=== PATIENT | female | born 1970 | race Caucasian/White ===

== ENCOUNTER 2016-11-10 20:41 | Inpatient (IN) | payer OTHER ==
[~2016-11-10] VITALS: Ht 162.6 cm; Wt 113.4 kg
[2016-11-11] MEDS ORDERED: Alum-Mag Hydrox-Simeth 30 mL Suspension PO PRN (01:55)
[2016-11-11] MEDS ORDERED: Magnesium Hydroxide 10 mL Oral Concentration PO PRN (01:55)
[2016-11-11] MEDS ORDERED: Benzocaine-Menthol Lozenge 2/Pkg PO PRN (01:55)
[2016-11-11] MEDS ORDERED: IPRA4AER IH (04:18)
[2016-11-11] MEDS ORDERED: BENZ200C44 PO (04:19)
[2016-11-11] MEDS ORDERED: ARIP20TA10 PO (04:19)
[2016-11-11] MEDS ORDERED: HYDR25TA4 PO (04:20)
[2016-11-11] MEDS ORDERED: LOSA25TA21 PO (04:21)
[2016-11-11] MEDS ORDERED: LORA-303 PO (04:21)
[2016-11-11] MEDS ORDERED: NABU500T PO (04:22)
[2016-11-11] MEDS ORDERED: SERT100T9 PO (04:26)
[2016-11-11] MEDS ORDERED: HYDR-656 PO (04:30)
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
[2016-11-11] MEDS ORDERED: Albuterol-Ipratropium 3 mL Inhalation Solution NEB PRN (06:17)
[2016-11-11 12:33] VITALS: BP 154/91; PULSE 89; RESP 16
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
[2016-11-11] MEDS: Albuterol-Ipratropium 120 Spray 4 Gm Inhaler INHALATION SCH ×2 (14:40→21:13)
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
--- NOTE | 2016-11-11 15:42 | NUR ---
[id number]. nurs. SECLUSION at 1250. Pt exhibiting disorganised thinking, pressured speech and behaviour stating her rights had been violated ,did not want to talk to family, poor insight into behavioural pxs leading to hospitalization and demanding to speak to Dept of health and then 911. Pt escalated in response to peers out of control behaviour and refusing all attempts to redirection to less stimulating environment. Drs order received for application of restraints and pt placed in restraints while yelling and crying and resisting, pt refusing to take medication p.o. and pt given 10mg zyprexa IM. at 1255. Staff providing 1:1 . Pt continued calling out to call 911, yelling to be let out crying, restless. Pt fell asleep for 5 minutes, woken and agreed to take p.o. meds, agreed to maintain control and follow directions and returned to bedrm to sleep restraints removed, went to bathrm and returned to bedrm and resting quietly in bed.
--- NOTE | 2016-11-11 16:05 | NUR ---
Obs Dayshift Pt was quite anxious, restless, pressured w/ many requests every few min. during the morning. Pt continued to become more anxious and demanding, asking the same couple of questions over and over. Pt was attempting to call 911 multi times, phones were taken away and she became demanding, loud, verbally aggressive. Pt began yelling that she was having a heart attack and a stroke, laid on the floor between the hallway and the dining area blocking the path way. Pt became aggressive w/ staff, a code was called and patient became threatening. Staff had to go hands on and patient was placed in 4 point restraints. Addendum: 11/11/16 at 1639 by [facility] Pt came out of restraints and seclusion, was able to contract for safety and went back to her room, slept for approx 1.5 hrs. Pt was up in the milieu, calm. Pt began requesting to speak w/ the and to use the phone to call her . RN spoke w/ her and requested that she remain calm and not to call 911. Pt began requesting that her get special early visiting hrs because she needed the support from him, and that he lived too far for him to drive in the dark. Pt was slightly more calm, and accepted staff responses grudgingly. Pt is easily irritable, manipulative, demanding, disorganized, labile. Ok ADL's, Good meals
--- NOTE | 2016-11-11 19:38 | NUR ---
Operations Administrator/Counselor: S: "I'm ready to talk to you now." O: Patient only slept 1.5 hours last night as per staff. She denies S/I and H/I. She denies auditory and visual hallucinations. Depression and anxiety were not rated. A: Patient is cooperative, inappropriate, dysphoric, delusional, grandiose, poor insight, poor judgment. P: Follow the care plan, coordinate with out-patient providers, monitor behavior.
--- NOTE | 2016-11-12 01:36 | NUR ---
Nursing Noc noted to visit at beginning of shift, but had to be removed r/t patient aggravated behavior towards him, ending with her telling him to get the fuck out of here to [facility]. Pt was able to regain control of her emotions and noted to spent the rest of the evening on telephone with friends. Pt continues to present paranoid, threatening to marito staff, and confrontational and entitled. Continuing to monitor mood, behavior and emotional state. Q15 minute safety checks CP
--- NOTE | 2016-11-12 05:18 | NUR ---
nursing, nights, 11-7 s/o- has appeared to sleep after 2300 to 0400. is currently socializing in the day room. assessed q 15 minutes. a- no apparent distress. p- monitor behavior/emotional state, quality, times and amount of sleep, use and effect of medication. kvng
[2016-11-12] MEDS: Albuterol-Ipratropium 120 Spray 4 Gm Inhaler INHALATION SCH ×4 (07:40→20:52)
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
[2016-11-12 13:53] VITALS: BP 132/82; PULSE 85; RESP 16
--- NOTE | 2016-11-12 18:48 | NUR ---
Contract Administrator/Counselor: S: "I would feel more stable if I could smoke 1 or more cigarettes." O: Patient slept 5 hours last night as per staff. She denies S/I and H/I. She denies auditory and visual hallucinations. Depression is 3/10 and anxiety is 2/10. Psychiatrist asked patient why she behaved the way she did yesterday and patient stated, "I have quite a temper and bad tantrums. I'm not good with communication. I act out because I feel that no one is hearing me and acting out is my way of making people hear me." A: Patient is cooperative, irritable at times, labile, apologetic, tearful, loose, poor insight, poor judgment. P: Follow the care plan, coordinate with out-patient providers, monitor behavior.
--- NOTE | 2016-11-12 18:55 | NUR ---
[id number]. nurs. S: " I am all right at work just have a cigarette at breaks but when I am at home I am smoking all the time and drinking I have cut back, but I am having a hard time here can you go out for a cigarette." Pt stating that she wants to work on dealing with behavioural pxs one step at a time but is having difficult time with restrictions of being hospitalized. Pt frequently tearful some pressured presentation frequent inquires and requests but clearly trying to maintain appropriate behaviour . Pt given motrin 800 mg for hip pain with zyprexa 10mg for racing thoughts, agitation and frequent tearfulness at 1700 approx. Pt had received tylenol 650mg at approx. midday. Did do yoga grp. Pt attending groups and participated. Pt requesting more nicotine replacement for 30 cigs daily 28mg nicoderm ordered. Pt visited by her spouse carole claros. P:CNCP
--- NOTE | 2016-11-13 04:33 | NUR ---
nursing, nights, 11-7 s/o- has appeared to sleep after 0 during q 15 minute assessments. a- no apparent distress. p- monitor behavior/emotional state, quality, times and amount of sleep, use and effect of medication. kvng
[2016-11-13] MEDS: Albuterol-Ipratropium 120 Spray 4 Gm Inhaler INHALATION SCH ×4 (05:30→20:17)
--- NOTE | 2016-11-13 14:08 | PCM.PNPSY ---
Subjective Date of Service Nov 13, 2016 Subjective I spent 30 minutes both reviewing treatment plan with our clinical team, interviewing the patient and providing supportive/educational psychotherapy. I met with both the patient and her for a couple's session. I spent more than 50% of the time counseling the patient. I reviewed the treatment plan with the patient and discussed options available including the potential risks, benefits and side effects. Rachael reports a marked improvement in thought organization and mood stability. Staff reports that she has been active and participating well in one-to-one unit and group activities. She slept 7 hours and denies depression manic or psychotic symptoms review. She denies medication side effects. She was able to identify her medications and what they were used to treat. Current Medications Current Medications Albuterol/ Ipratropium 1 spr QID INHALATION Last administered on 11/13/16 11:09 ; Admin Dose 1 SPR; Start 11/11/16 at 16:30 Ibuprofen 800 mg TID PRN PO Last administered on 11/13/16 05:29; Admin Dose 800 MG; Start 11/12/16 at 16:50 Nicotine 2 patch DAILY PRN TOPICAL Last administered on 11/13/16 08:17; Admin Dose 2 PATCH; Start 11/12/16 at 17:40 Nicotine Polacrilex 2 mg Q4H PRN BUCCAL Last administered on 11/13/16 13:51; Admin Dose 2 MG; Start 11/12/16 at 17:35 Olanzapine 20 mg HS PO Last administered on 11/12/16 20:52; Admin Dose 20 MG; Start 11/11/16 at 21:00 Mental Status Exam Appearance: Unkept Attitude: Pleasant, Cooperative Behavior: No unusual behavior Affect: Labile Mood: Irritable Thought Process/Associations: Goal Directed Speech Production: Normal Speech Rate: Normal Speech Articulation: Normal Thought Content: Appropriate Danger to Self/Suicidal Ideati: None Danger to Others: None Hallucinations: Auditory (Endorses) Consciousness: Alert Orientation: Person, Place, Date, Situation Memory: Grossly Intact Estimate Intellectual Function: Average Basis for IQ estimate: Awareness current events, Word use/vocabulary, Educational history, Employment history Attention/Concentration & Cogn: Grossly Intact Cognitive Testing Method: Abstract Reasoning during interview Insight: Good Judgement: Limited Mental Health Plan Layla is made significant improvement in impulse control reality testing and judgment over the past 72 hours. She agreed to a 14 day MR today but will likely only need an additional 5-7 days to stabilize. She had a very supportive and showed good insight during our session today. She denies difficulty with her medications And I believe the current doses are appropriate. [place] AXIS I 1. Psychotic disorder, not otherwise specified. 2. Mood disorder, not otherwise specified. 3. Bipolar disorder, most recent episode manic with psychotic features. 4. Rule out substance use disorder. AXIS II Cluster B personality features. AXIS III 1. History of hypertension. 2. History of recent bronchitis. AXIS IV Stressors are noted for continuation of suspicion of drug use, disturbance of behavior, disturbance of relationships. AXIS V Global assessment of functioning of current 30. Medications Treatments Patient is being provided with a high degree of safety through our unit structure and active adult engagement provided by our mental health professionals, mental health technicians, psychiatric nurses and myself. We are focusing on developing improved coping skills and identifying stressors that may have led to current episode. We will attempt to: * Integrate into therapeutic groups, milieu and individual therapy. * Maintain in a closely monitored and structured unit * Provide low-stimulation environment * Obtain collateral data to assist in treatment planning * Assess degree of lability of affect and impulse control * Complete safety plan * Decrease frequency of relapse and need for re-hospitalization * Denies thoughts of harm to self and/or others * Establish a consistent sleep pattern * Medication effective in stabilization of mood and/or thought process * Reduce the risk of imminent harm to self and/or others by providing a safe environment * Tolerates medication without side effects * Patient will be on the following psychiatric medications: 20 mg at bedtime Education: Educate about metabolic etiologies related to obesity Patient's legal status Patient is on a 14 day involuntary treatment hold initiated 11/13/2016. Anticipated number of hospital days to achieve above goals: 5-7 Disposition: Home Valeriano Kaur MD Nov 13, 2016 14:08
[2016-11-13 14:28] VITALS: BP 141/85; PULSE 95; RESP 16
--- NOTE | 2016-11-13 17:55 | NUR ---
Observations 0900 - 2130 Pt affect and mood was anxious, labile and emotional. Pt was out on the unit, attended group and unit activities. Pt was on the phone several times during this shift and became agitated after talking to father. Pt speech and eye contact was ok. Pt is pleasant and friendly upon approach. Pt is polite and cooperative. Pt maintained behavior control throughout the shift. Pt attended meals in D.R. and ate 100% of meals. Pt ate snack. Pt was observed every 15 minutes throughout the shift as ordered.
--- NOTE | 2016-11-13 18:19 | NUR ---
Die Cast Die Maker/Counselor: S: "I'm okay with staying here until I'm better." O: Patient slept 7 hours last night as per staff. She denies S/I and H/I. She denies auditory and visual hallucinations. Depression and anxiety are reported as "a little bit." Patient requested a whole new out-patient provider team. This ad copy writer spoke to patient's insurance and discussed patient's request. Insurance is okay with new out-patient provider team and will assist case checker in discharge planning with the "new team." A letter was faxed to patient's job, ATTN: Courtney in [employer], fax #: [phone]. A: Patient is cooperative, labile, polite, seeking help, fair insight, fair judgment. P: Follow the care plan, coordinate with out-patient providers.
--- NOTE | 2016-11-14 06:00 | NUR ---
Nursing Note Hydraulic Riveter 7pm to 7am Pt visible on unit watching t.v., minimal interaction with peers, p.t affect constricted, mood depressed. Pt became tearful as she talked about how she feels unsupported by her family and how she believes she is always letting them down. They want me to be perfect and are pressuring me to do things their way. Pt had a difficult time getting to sleep and staying asleep tonight. I have a lot on my mind. I am very anxious. Pt denied A/VH and thoughts were organized linear and logical. Pt reports depression 12/31, denies SI plan or intent and is ruminating about the affects her drinking has had on her family. She is requesting Ambien for sleep and vistaril for anxiety. Informed her that this request will be passed onto MD. Monitored pt. q 15 minutes for safety location and accountability.
[2016-11-14] MEDS: Albuterol-Ipratropium 120 Spray 4 Gm Inhaler INHALATION SCH ×4 (07:56→21:14)
[2016-11-14 08:45] VITALS: BP 139/89; PULSE 85; RESP 16
--- NOTE | 2016-11-14 13:33 | NUR ---
Observations 0700 - 1500 Pt affect and mood was flat, bright when engaged, friendly and content. Pt was out in [facility] and was social with peers and staff. Pt speech and eye contact was ok. Pt is pleasant and friendly upon approach. Pt is polite and cooperative. Pt maintained behavior control throughout the shift. Pt attended community meeting, group and unit activities. Pt set a daily goal and rated her mood 5/10 with 10 being the best. Pt attended meals in [facility] and ate 100% of breakfast and lunch. Pt went out on patio with staff and peers to get some fresh air. Pt talked on the phone a couple of times. Pt was observed every 15 minutes throughout the shift as ordered.
--- NOTE | 2016-11-14 14:07 | NUR ---
Shift note 7a-7p. Pt. has been very pleasant and cooperative today. Denies anxiety, depression, hallucinations or thoughts of harm to self or others. I talked with her for a while on the patio and she says she feels very supported here and that this is a good place where she is getting help. She talked about her history of alcohol abuse and says that she has been doing better since September of this year.
--- NOTE | 2016-11-14 15:30 | NUR ---
Nursing Note [id number] Mood, Behavior S/O: Pt has good appetite. Out of room much of the day. Conversation tracking is clear & organized with normal rate & rhythm. Pt has been tearful frequently during the day. She states, "I've done so many things I'm ashamed of." Pt states, "I don't think I'm bipolar. I think it's an addiction problem." Time spent with pt discussing how she feels when she stops taking her medications. Pt took Zyprexa 10 mg & Tylenol 650 mg for anxiety at 0816 this morning. It appears affective. Pt d/n want to go into court this morning. She was placed on a 14 MRO with her consent. A: Pt has little insight into illness. P: Provide supportive environment. Monitor medications & effects.
[2016-11-14] MEDS: ARIPiprazole 10 mg Tablet PO SCH (17:51)
[2016-11-14] MEDS: hydrOXYzine Pamoate 25 mg Capsule PO PRN (20:46)
--- NOTE | 2016-11-14 20:46 | PCM.PNPSY ---
Subjective Date of Service Nov 14, 2016 Subjective The patient is seen today with her present. She reports that she is feeling significantly better since being taken off prednisone and being placed on olanzapine. The patient also reports that since alcohol cessation and her mood and thought clarity have improved. The patient had a leave of absence form to be completed regarding her stay. Previous emergency room records will be required to determine the approximate start date of her decline. She reports that her mood is stabilizing. Her reports that she is returning to more of her baseline presentation. The patient had a number of questions about her ongoing treatment and her preference to restart aripiprazole and sertraline. We discussed the risks and benefits of switching including symptom exacerbation and advised against starting sertraline until stable in outpatient setting. The patient may also benefit from lamotrigine for bipolar depression should this occur. She was advised that switching from olanzapine which appeared to be stabilizing her though did run the risk of weight gain back to aripiprazole could prolong her stay and she continued to agree with cross taper. The patient requested the hydroxyzine for anxiety and Ambien for sleep. She reported her only side effect at this point was constipation and was agreeable to having psyllium to help with constipation. She denies racing thoughts. Sleep: 3.25 hours Appetite: "Good" Suicidal and homicidal ideation: Denies Auditory hallucinations: Denies Visual hallucinations: Denies Other Psychotic Symptoms: N/A Anxiety: 3/10 Depression: 0/10 Current Medications Current Medications Aripiprazole 20 mg DAILY PO Last administered on 11/14/16t 17:51; Admin Dose 20 MG; Start 11/14/16 at 17:00 Mental Status Exam Appearance: Neat/well groomed Attitude: Pleasant, Cooperative Behavior: No unusual behavior Affect: Well Modulated/Appropriate Mood: Euthymic Thought Process/Associations: Goal Directed Speech Production: Normal Speech Rate: Normal Speech Articulation: Normal Thought Content: Appropriate Danger to Self/Suicidal Ideati: None Danger to Others: None Hallucinations: Auditory (Denies), Visual (Denies) Consciousness: Alert Orientation: Person, Place, Date, Situation Memory: Grossly Intact Estimate Intellectual Function: Average Basis for IQ estimate: Awareness current events, Word use/vocabulary, Educational history, Employment history Attention/Concentration & Cogn: Grossly Intact Cognitive Testing Method: Abstract Reasoning during interview Insight: Good Judgement: Limited Mental Health Plan The patient is a 46-year-old female with a history of bipolar disorder who had worsening symptoms following an 18 day course of prednisone treatment. She eventually became so agitated that she was eventually detained. The patient has responded well to combination of removing aripiprazole and sertraline and addition of olanzapine. The patient is still not sleeping well. She reports concern about potential weight gain and 4 long-term management would prefer to try to be on aripiprazole. We discussed the potential problems of returning to aripiprazole and that she may have return of symptoms. She was advised given her episode not to restart an antidepressant at this time and to consider addition of lamotrigine for bipolar depression in the future. The patient also requested zolpidem for insomnia as this been effective in the past. She also reported hydroxyzine effective for anxiety. [place] AXIS I 1. Bipolar disorder, most recent episode manic with psychotic features. 2. Alcohol use disorder AXIS II Cluster B personality features. AXIS III 1. History of hypertension. 2. History of recent bronchitis. AXIS IV substance use, relationship strain. AXIS V Global assessment of functioning of current 35. Medications Treatments 1. The patient is admitted to the inpatient unit and will be provided a safe and secure environment. 2. The patient is denying current active suicidality and is not in need of a one-to-one at this time. She is agreeing to notify us should she have any acute suicidal or homicidal thoughts. 3. The patient is encouraged to participate with group and milieu activities. 4. The patient will be seen by the treatment team on a daily basis to assess symptoms, side effects and response to treatment. 5. The risks and benefits of cross taper to aripiprazole were discussed and the patient will be started on 20 mg daily of aripiprazole. 6. Olanzapine will be reduced to 10 mg nightly. 7. Hydroxyzine 25 mg every 4 hours as needed for anxiety or agitation 8. Zolpidem tartrate 5 mg p.o. nightly p.r.n. insomnia. 9. Psyllium twice daily for constipation 10. Obtain outpatient recent ER records from [facility] in [place]. 11. Anticipated length of stay is 10-14 days. Karthikeyan Carpio MD Nov 14, 2016 20:46 * Tolerates medication without side effects * Patient will be on the following psychiatric medications: 20 mg at bedtime Education: Educate about metabolic etiologies related to obesity Patient's legal status Patient is on a 14 day involuntary treatment hold initiated 11/13/2016. Anticipated number of hospital days to achieve above goals: 5-7 Disposition: Home Karthikeyan Carpio MD Nov 14, 2016 20:46
--- NOTE | 2016-11-15 05:55 | NUR ---
Nursing note: manager medicare Patient appears to be sleeping on safety checks during the night. No complaints voiced.
[2016-11-15] MEDS: ARIPiprazole 10 mg Tablet PO SCH (07:54)
[2016-11-15] MEDS: Albuterol-Ipratropium 120 Spray 4 Gm Inhaler INHALATION SCH ×5 (07:54→21:30)
[2016-11-15 10:00] VITALS: BP 149/81; PULSE 87; RESP 17
--- NOTE | 2016-11-15 14:16 | NUR ---
NURSING NOTE [id number] Mood: "About a 7... I'm kind of bored" Affect: pleasant, cooperative, appropriate Behavior: doing morning exercises in the DR at start of shift. Participated in community mtg. Attended rec group. Social w/peers. Spent time out on the patio. Made phone calls to family. Thought processes: logical and linear in conversation, denies depression or suicidal ideation, no signs of chavez. PRNs Nicotine patches (2) 14 mg @ 08:35 + Nicotine lozenge Tylenol 650 mg @ 10:35 for 10/10 R hip pain, reports it reduced pain to 4/10 Ibuprofen 800 mg @ 12:25 for 4/10 R hip pain
--- NOTE | 2016-11-15 15:29 | PCM.PNPSY ---
Subjective Date of Service Nov 15, 2016 Subjective The patient reports that she slept well last night and woke up this morning feeling refreshed. She was noted by staff to have some tearful episodes and she herself endorsed episodic tearfulness. The patient attributes this to not drinking 7 or 8 shots of alcohol per day. She denies racing thoughts. The patient would like to leave as soon as possible but would also like to be on monotherapy. She expressed concern about having too many calories and we discussed setting aside parts of her meal particularly those having carbohydrates to reduce her caloric load. She was advised not to severely limit her caloric intake as this would be counter therapeutic. She denied side effects. Sleep: 7+ hours, "refreshed" Appetite: "Good" Suicidal and homicidal ideation: Denies Auditory hallucinations: Denies Visual hallucinations: Denies Other Psychotic Symptoms: N/A Anxiety/Depression: "Seems to go away pretty quickly." Current Medications Current Medications Aripiprazole 20 mg DAILY PO Last administered on 11/15/16 07:54; Admin Dose 20 MG; Start 11/14/16 at 17:00 Hydroxyzine Pamoate 25 mg Q4 PRN PO Last administered on 11/14/16 20:46; Admin Dose 25 MG; Start 11/14/16 at 20:05 Olanzapine 10 mg HS PO Last administered on 11/14/16 20:46; Admin Dose 10 MG; Start 11/14/16 at 21:00 Psyllium Husk 1 packet BIDWM PO Last administered on 11/15/16 07:55; Admin Dose 1 PACKET; Start 11/15/16 at 08:00 Zolpidem Tartrate 5 mg HS PRN PO Last administered on 11/14/16 20:46; Admin Dose 5 MG; Start 11/14/16 at 20:05 Mental Status Exam Vital Signs Vital Signs Date Time Temp Pulse Resp B/P Pulse Ox O2 Delivery O2 Flow Rate FiO2 11/15/16 10:00 36.1 87 17 149/81 Appearance: Neat/well groomed Attitude: Pleasant, Cooperative Behavior: No unusual behavior Affect: Well Modulated/Appropriate Mood: Euthymic Thought Process/Associations: Goal Directed Speech Production: Normal Speech Rate: Normal Speech Articulation: Normal Thought Content: Appropriate Danger to Self/Suicidal Ideati: None Danger to Others: None Hallucinations: Auditory (Denies), Visual (Denies) Consciousness: Alert Orientation: Person, Place, Date, Situation Memory: Grossly Intact Estimate Intellectual Function: Average Basis for IQ estimate: Awareness current events, Word use/vocabulary, Educational history, Employment history Attention/Concentration & Cogn: Grossly Intact Cognitive Testing Method: Abstract Reasoning during interview Insight: Good Judgement: Limited Mental Health Plan The patient is a 46-year-old female with a history of bipolar disorder who had worsening symptoms following an 18 day course of prednisone treatment. She eventually became so agitated that she was detained and is now on a 14 day inpatient order. The patient has responded well to combination of removing aripiprazole and sertraline and adding olanzapine. The patient would prefer to be on one medication and so we will continue to cross-taper olanzapine. The patient so far as expressed no return of manic symptoms. She did express some hangover from sleeping medication and was agreeable to taking hydroxyzine at bedtime and Ambien only if necessary later in the evening. [place] AXIS I 1. Bipolar disorder, most recent episode manic with psychotic features. 2. Alcohol use disorder AXIS II Cluster B personality features. AXIS III 1. History of hypertension. 2. History of recent bronchitis. AXIS IV substance use, relationship strain. AXIS V Global assessment of functioning of current 35. Medications Albuterol 1 spray 4 times daily Nicotine polacrilex 2 mg every 4 hours when necessary NicoDerm 14 mg x 2 daily Psyllium one packet twice daily with meals Hydrochlorothiazide 12.5 mg daily Losartan 25 mg daily Aripiprazole 20 mg daily Olanzapine 10 mg nightly Hydroxyzine 25 mg every 4 hours as needed for anxiety or agitation zolpidem 5 mg nightly as needed for insomnia Olanzapine 10 mg every 6 hours as needed for agitation Treatments 1. The patient is admitted to the inpatient unit and will be provided a safe and secure environment. 2. The patient is denying current active suicidality and is not in need of a one-to-one at this time. She is agreeing to notify us should she have any acute suicidal or homicidal thoughts. 3. The patient is encouraged to participate with group and milieu activities. 4. The patient will be seen by the treatment team on a daily basis to assess symptoms, side effects and response to treatment. 5. The risks and benefits of cross taper to aripiprazole were discussed and the patient will be started on 20 mg daily of aripiprazole. 6. Olanzapine will be reduced to 5 mg nightly. 7. Hydroxyzine 25 mg every 4 hours as needed for anxiety or agitation 8. Hydroxyzine 50 mg nightly with Zolpidem tartrate 5 mg p.o. nightly p.r.n. insomnia after 10 PM. 9. Psyllium twice daily for constipation 10. Complete patient's leave of absence form. 11. Anticipated length of stay is 10-14 days. Karthikeyan Carpio MD Nov 15, 2016 15:29
--- NOTE | 2016-11-15 16:27 | NUR ---
Observations [id number] Pt was exercising and stretching on unit at start of shift. Pt friendly and pleasant with requests. She spent much of the day participating in groups, out on the patio, and talking with peers. Pt also made a collage in the afternoon. Pt enjoys music and became emotional at times talking about missing her family and how understanding they have been through difficult times. Pt's family came to visit in the afternoon and she showed them her collage she had been working on and appeared to enjoy their visit. Pt was observed every 15 minutes of shift as directed.
--- NOTE | 2016-11-15 19:10 | NUR ---
Nurses Note Evening Patient has been on the unit intermittently. She has maintained behavioral control. Patients' family had visited which improved her mood. Patient remains medication compliant without adverse effects. patient has been able to sleep well at night. Will encourage continued medication compliance stressing the benefits.Maintain q 15min. checks for safety and support. Addendum: 11/15/16 at 1920 by LAUREN BROWN RN Amended: Links added.
[2016-11-15] MEDS: hydrOXYzine Pamoate 25 mg Capsule PO PRN (23:04)
--- NOTE | 2016-11-16 05:17 | NUR ---
Nursing Note Linux Systems Analyst 11pm to 7am Pt in day room at start of shift. She requested Ambien for sleep at approx. 2300 and slept the duration of shift. No issues observed or reported. Monitored pt q 15 minutes for safety location and accountability
[2016-11-16] MEDS: Albuterol-Ipratropium 120 Spray 4 Gm Inhaler INHALATION SCH ×4 (07:31→21:09)
[2016-11-16] MEDS: ARIPiprazole 10 mg Tablet PO SCH (07:36)
[2016-11-16 08:15] VITALS: BP 129/81; PULSE 65; RESP 18
--- NOTE | 2016-11-16 14:37 | NUR ---
NURS Note DAYSHIFT Mood: "I am doing so well." Endorses mild anxiety, 2/10; denies depression. Affect: Well-modulated. Behavior: Pleasant and appropriate to staff and peers. Attended groups. Thought Content/Process: "I am really ready to go home and be with my kiddos." Linear, logical. Denies AH, VH. Denies SI, HI. PRN/NURS Notes: Pt is eager to discharge and has expressed concerns about her family accepting her back. Logistics Planning Manager advised pt to voice these concerns to disease case manager rn and physician. Pt expressed that if she is staying here, she would like to see her children who are under 18 years old.
--- NOTE | 2016-11-16 15:38 | NUR ---
Tire Shop Mechanic/Counselor S:"I'm going much better now. Group was really helpful." O"Patient did not express any SI or HI, no AVH and rated her anxiety and depression both at a 2. She slept for 5.25 hours. A: Patient stated that she felt like being here has helped her realize that she should not be drinking as much as she did, and that being sober feels surreal. She stated that it was a strange feeling to be dealing with her emotions now. She expressed that having gone to structured groups has really helped her, and she has enjoyed going. She was clear and linear in her thinking and talking. P:Follow care plan and coordinate with outpatient providers.
[2016-11-16] MEDS: hydrOXYzine Pamoate 25 mg Capsule PO PRN (18:02)
--- NOTE | 2016-11-16 21:28 | PCM.PNPSY ---
Subjective Date of Service Nov 16, 2016 Subjective The patient reports that she is feeling "fabulous" today. She denies racing thoughts and reports no tearful episodes. The patient would like to leave as soon as possible but would also like to be on monotherapy. We discussed discontinuing olanzapine and if still doing well, could discuss with family regarding discharge. She was advised not to severely limit her caloric intake as this would be counter therapeutic. She denied side effects. Patient reports constipation has resolved. Sleep: 5.25+ hours Appetite: "Fine" Suicidal and homicidal ideation: Denies Auditory hallucinations: Denies Visual hallucinations: Denies Other Psychotic Symptoms: N/A Anxiety: "low" 2/10 Depression: 0/10 Current Medications Current Medications Hydroxyzine Pamoate 50 mg HS PO Last administered on 11/16/16 21:09; Admin Dose 50 MG; Start 11/15/16 at 21:00 Olanzapine 5 mg HS PO Last administered on 11/15/16 21:12; Admin Dose 5 MG; Start 11/15/16 at 21:00; Stop 11/16/16 at 17:30; Status DC Psyllium Husk 1 packet BIDWM PO Last administered on 11/16/16 17:01; Admin Dose 1 PACKET; Start 11/15/16 at 08:00 Zolpidem Tartrate 5 mg HS PRN PO Last administered on 11/15/16 22:55; Admin Dose 5 MG; Start 11/15/16 at 15:35 Mental Status Exam Appearance: Neat/well groomed Attitude: Pleasant, Cooperative Behavior: No unusual behavior Affect: Well Modulated/Appropriate Mood: Euthymic Thought Process/Associations: Goal Directed Speech Production: Normal Speech Rate: Normal Speech Articulation: Normal Thought Content: Appropriate Danger to Self/Suicidal Ideati: None Danger to Others: None Hallucinations: Auditory (Denies), Visual (Denies) Consciousness: Alert Orientation: Person, Place, Date, Situation Memory: Grossly Intact Estimate Intellectual Function: Average Basis for IQ estimate: Awareness current events, Word use/vocabulary, Educational history, Employment history Attention/Concentration & Cogn: Grossly Intact Cognitive Testing Method: Abstract Reasoning during interview Insight: Good Judgement: Good Mental Health Plan The patient is a 46-year-old female with a history of bipolar disorder who had worsening symptoms following an 18 day course of prednisone treatment. She eventually became so agitated that she was detained and is now on a 14 day inpatient order. The patient has responded well to combination of removing aripiprazole and sertraline and adding olanzapine. The patient would prefer to be on one medication and so we will continue to cross-taper olanzapine. The patient so far as expressed no return of manic symptoms. She did express some hangover from sleeping medication and was agreeable to taking hydroxyzine at bedtime and Ambien only if necessary later in the evening. Patient agreeable to discontinuing olanzapine, and if no return of symptoms could discharge later this week. [place] AXIS I 1. Bipolar disorder, most recent episode manic with psychotic features. 2. Alcohol use disorder AXIS II Cluster B personality features. AXIS III 1. History of hypertension. 2. History of recent bronchitis. AXIS IV substance use, relationship strain. AXIS V Global assessment of functioning of current 35. Medications Albuterol 1 spray 4 times daily Nicotine polacrilex 2 mg every 4 hours when necessary NicoDerm 14 mg x 2 daily Psyllium one packet twice daily with meals Hydrochlorothiazide 12.5 mg daily Losartan 25 mg daily Aripiprazole 20 mg daily Hydroxyzine 25 mg every 4 hours as needed for anxiety or agitation zolpidem 5 mg nightly as needed for insomnia Olanzapine 10 mg every 6 hours as needed for agitation Treatments 1. The patient is admitted to the inpatient unit and will be provided a safe and secure environment. 2. The patient is denying current active suicidality and is not in need of a one-to-one at this time. She is agreeing to notify us should she have any acute suicidal or homicidal thoughts. 3. The patient is encouraged to participate with group and milieu activities. 4. The patient will be seen by the treatment team on a daily basis to assess symptoms, side effects and response to treatment. 5. The risks and benefits of cross taper to aripiprazole were discussed and the patient will be started on 20 mg daily of aripiprazole. 6. Discontinue olanzapine. 7. Hydroxyzine 25 mg every 4 hours as needed for anxiety or agitation 8. Hydroxyzine 50 mg nightly with Zolpidem tartrate 5 mg p.o. nightly p.r.n. insomnia after 10 PM. 9. Psyllium twice daily for constipation 10. Completed patient's leave of absence form. 11. Anticipated total length of stay is 10-14 days. Karthikeyan Carpio MD Nov 16, 2016 21:27
--- NOTE | 2016-11-17 05:34 | NUR ---
Nursing Note Safe And Vault Service Mechanic 11pm to 7am Pt asleep at start of shift, woke 1x for a drink and went back to bed until 0515 when she woke up for the day. Pt reports feeling excited for possible d/c on Wed. Monitored pt with q 15 min face checks for safety, location and accountability
[2016-11-17] MEDS: Albuterol-Ipratropium 120 Spray 4 Gm Inhaler INHALATION SCH ×4 (07:49→20:53)
[2016-11-17] MEDS: ARIPiprazole 10 mg Tablet PO SCH (07:51)
--- NOTE | 2016-11-17 14:27 | NUR ---
NURS Note DAYSHIFT Mood: Describes mood as "great." Anxiety /; denies depression. Affect: Well-modulated. Behavior: Pleasant and appropriate with peers and staff. Attended all groups, went outside in afternoon. Thought Content/Process: "It feels like this isn't real. Like everyone here around me are actors in a play. Sometimes I hear a Prixel song and I think I wrote it; but, its not like during my first psychotic break when I thought I was Obdulia Dong and thought I was going up on stage at her concert to perform." Linear, logical, and goal directed other than mildly delusional thoughts related to thinking she wrote songs by Obdulia Iker; shows good insight related to these delusions. De-realization. Denies JAMI, VH. Denies SI HI. PRN/NURS Notes: Pt has been taking nicotine lozenges, expresses desire to cut down on smoking (reports smoking 30 cigarettes per day).
--- NOTE | 2016-11-17 15:13 | NUR ---
Candy Packer/Counselor S:"Sometimes all of this feels very surreal." O: Patient did not express any SI or HI, no AVH and no depression or anxiety. A: Patient stated that she did not have any depression or anxiety after determining that her feelings of sadness were only related to recognizing that she is letting herself feel things, but that it's not the same as when she's feeling depressed. She stated that she felt the breathing exercise during group will be very beneficial in the future. She has made several comments that things feel very surreal to her, and that knowing that others are going through the same or similar things have helped her realize that she is not alone. P: Follow care plan and coordinate with outpatient providers.
[2016-11-17 16:26] VITALS: BP 137/94; PULSE 77; RESP 18
--- NOTE | 2016-11-17 17:06 | NUR ---
Observations [id number] Pt active on unit, participating in groups. Friendly with staff and peers. Pt focused on leaving, wanting to talk with the doctor in the morning to see if potential discharge could happen today. Pt attended all meals, eating 200%. Good with ADL's, observed every 15 minutes of shift as directed.
--- NOTE | 2016-11-17 20:08 | PCM.PNPSY ---
Subjective Date of Service Nov 17, 2016 Subjective The patient reports that she is feeling "great, a little sluggish after lunch" today. She denies racing thoughts and reports no tearful episodes. The patient reports that she is doing well on aripiprazole monotherapy. The patient reports that she would like to change prescribers to the [facility] and states she has [employer] and [employer] as secondary insurance. Patient requests exception to visiting for teenage children. She denied side effects. Patient reports constipation has resolved. Sleep: 6.25+ hours Appetite: "Good" Suicidal and homicidal ideation: Denies Auditory hallucinations: Denies Visual hallucinations: Denies Other Psychotic Symptoms: N/A Anxiety: "good, occasional anxiety" Depression: 0/10 Current Medications Current Medications Hydroxyzine Pamoate 50 mg HS PO Last administered on 11/16/16 21:09; Admin Dose 50 MG; Start 11/15/16 at 21:00 Olanzapine 5 mg HS PO Last administered on 11/15/16 21:12; Admin Dose 5 MG; Start 11/15/16 at 21:00; Stop 11/16/16 at 17:30; Status DC Mental Status Exam Vital Signs Vital Signs Date Time Temp Pulse Resp B/P Pulse Ox O2 Delivery O2 Flow Rate FiO2 11/17/16 16:26 35.5 77 18 137/94 Appearance: Neat/well groomed Attitude: Pleasant, Cooperative Behavior: No unusual behavior Affect: Well Modulated/Appropriate Mood: Euthymic Thought Process/Associations: Goal Directed Speech Production: Normal Speech Rate: Normal Speech Articulation: Normal Thought Content: Appropriate Danger to Self/Suicidal Ideati: None Danger to Others: None Hallucinations: Auditory (Denies), Visual (Denies) Consciousness: Alert Orientation: Person, Place, Date, Situation Memory: Grossly Intact Estimate Intellectual Function: Average Basis for IQ estimate: Awareness current events, Word use/vocabulary, Educational history, Employment history Attention/Concentration & Cogn: Grossly Intact Cognitive Testing Method: Abstract Reasoning during interview Insight: Good Judgement: Good Mental Health Plan The patient is a 46-year-old female with a history of bipolar disorder who had worsening symptoms following an 18 day course of prednisone treatment. She eventually became so agitated that she was detained and is now on a 14 day inpatient order. The patient has responded well to combination of removing aripiprazole and sertraline and adding olanzapine. The patient would prefer to be on one medication and so we will continue to cross-taper olanzapine. The patient so far as expressed no return of manic symptoms. She did express some hangover from sleeping medication and was agreeable to taking hydroxyzine at bedtime and Ambien only if necessary later in the evening. Patient tolerating discontinuation of olanzapine, and is reporting readiness to return home. [place] AXIS I 1. Bipolar disorder, most recent episode manic with psychotic features. 2. Alcohol use disorder AXIS II Cluster B personality features. AXIS III 1. History of hypertension. 2. History of recent bronchitis. AXIS IV substance use, relationship strain. AXIS V Global assessment of functioning of current 35. Medications Albuterol 1 spray 4 times daily Nicotine polacrilex 2 mg every 4 hours when necessary NicoDerm 14 mg x 2 daily Psyllium one packet twice daily with meals Hydrochlorothiazide 12.5 mg daily Losartan 25 mg daily Aripiprazole 20 mg daily Hydroxyzine 25 mg every 4 hours as needed for anxiety or agitation zolpidem 5 mg nightly as needed for insomnia Olanzapine 10 mg every 6 hours as needed for agitation Treatments 1. The patient is admitted to the inpatient unit and will be provided a safe and secure environment. 2. The patient is denying current active suicidality and is not in need of a one-to-one at this time. She is agreeing to notify us should she have any acute suicidal or homicidal thoughts. 3. The patient is encouraged to participate with group and milieu activities. 4. The patient will be seen by the treatment team on a daily basis to assess symptoms, side effects and response to treatment. 5. The risks and benefits of cross taper to aripiprazole were discussed and the patient will be started on 20 mg daily of aripiprazole. 6. Patient may have secure visit with teenage children and . If goes well, could potentially leave in am. 7. Hydroxyzine 25 mg every 4 hours as needed for anxiety or agitation 8. Hydroxyzine 50 mg nightly with Zolpidem tartrate 5 mg p.o. nightly p.r.n. insomnia after 10 PM. 9. Psyllium twice daily for constipation 10. Completed patient's leave of absence form. 11. Anticipated total length of stay is 10-14 days. Karthikeyan Carpio MD Nov 17, 2016 20:08
--- NOTE | 2016-11-17 22:00 | NUR ---
Nurses Note Evening Patient remains friendly,social with peers. She has maintained behavioral control,remains medication compliant without adverse effects. She enjoyed a visit from her daughters which went well. Patient remains medication compliant without adverse effects. Will maintain q 15min checks for safety,encourage improved insight into illness and management of same. Addendum: 11/17/16 at 2216 by LAUREN BROWN RN Amended: Links added.
--- NOTE | 2016-11-18 06:38 | NUR ---
Sleep Adequate sleep through the night. Pt slept from [id number]. Total sleep 6.5 hours.
[2016-11-18] MEDS: ARIPiprazole 10 mg Tablet PO SCH (07:49)
[2016-11-18] MEDS: Albuterol-Ipratropium 120 Spray 4 Gm Inhaler INHALATION SCH (07:49)
--- NOTE | 2016-11-18 11:43 | PCM.DIMED ---
Discharge Instructions Date of Service Nov 18, 2016 Dates of Hospitalization Nov 11, 2016 at 01:41 Discharge Diagnosis Discharge Diagnosis AXIS I 1. Bipolar disorder, most recent episode manic with psychotic features. 2. Alcohol use disorder AXIS II Defer AXIS III 1. History of hypertension. 2. History of recent bronchitis. AXIS IV Psychosocial stressors moderate to severe AXIS V Global assessment of functioning of current 50. Medication Instructions Additional med instructions Should you have any thoughts of harming yourself or others, please call the crisis line, your provider, 911, or go to the nearest Emergency Department. Do not change or discontinue your medications without discussing with your provider. You have been given a prescription for 30 days supply of your new medication Diet Discharge Diet: No restrictions Activity Discharge Activity: No restrictions Patient Instructions Patient Instructions Should you have any thoughts of harming yourself or others, please call the crisis line, your provider, 911, or go to the nearest Emergency Department. Do not change or discontinue your medications without discussing with your provider. You have been given a prescription for 30 days supply of your new medication. Follow-up plan Follow-up per counselor [facility] Karthikeyan Carpio MD Nov 18, 2016 11:43
[2016-11-18] MEDS ORDERED: HYDR50CA3 PO (11:50)
[2016-11-18] MEDS ORDERED: NICO1PAT16 TRANSDERM (11:50)
[2016-11-18] MEDS ORDERED: HYDR-656 PO (11:50)
[2016-11-18] MEDS ORDERED: ARIP20TA10 PO (11:50)
[2016-11-18] MEDS ORDERED: PSYL3.4P5 PO (11:50)
--- NOTE | 2016-11-18 13:35 | NUR ---
Nursing Discharge Note: Patient cooperative with discharge process. Acknowledges understanding of d/c instructions and has a copy with them upon leaving unit at 1330. Belongings accounted for and with patient. Prescriptions faxed to patients pharmacy at [facility] in [place]. Patient denies harmful thoughts and hallucinations at this time.
--- NOTE | 2016-11-18 15:30 | NUR ---
Sheet Metal Work Furnace Installer/Counselor S:"I'm really excited to go home today." O: Patient denied any SI or HI, no AVH, rated her depression at a 1 and her anxiety at a 2. She slept for 6.5 hours. A: Patient was discharged and picked up by her . She was excited about leaving and felt good about it. Her stated that he was able to notice a huge improvement in her since she first came to [facility]. She was provided with follow up appts, since she requested a new PCP and therapist. P: Follow discharge plan and use safety plan as needed.
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
== END 2016-11-18 13:30 | disposition home or self-care (01) | DRG 885 ==
LOC: MHC 11-11 01:41
PROVIDERS: ADMIT Psychiatry & Neurology Psychiatry; ATTEND Psychiatry & Neurology Psychiatry
DX: F31.2 Bipolar disorder, current episode manic severe with psychotic features (principal); F10.99 Alcohol use, unspecified with unspecified alcohol-induced disorder; I10 Essential (primary) hypertension; F17.210 Nicotine dependence, cigarettes, uncomplicated

== ENCOUNTER 2017-01-05 22:23 | Emergency (ER) | payer OTHER ==
[~2017-01-05] VITALS: Ht 162.6 cm; Wt 111.4 kg
[~2017-01-05 22:23] MED LIST: ARIP20TA10 PO; BENZ200C44 PO; HYDR-656 PO; HYDR25TA4 PO; HYDR50CA3 PO; IPRA4AER IH; LOSA25TA21 PO; NICO1PAT16 TRANSDERM; PSYL3.4P5 PO
[2017-01-05 22:32] VITALS: BP 164/95; PULSE 74; RESP 22; O2SAT 97
--- NOTE | 2017-01-05 23:18 | ED.REPORT ---
HPI-Psychiatric Illness Date of Service Jan 05, 2017 ED Provider: Dr. Alejo The pt is a 46 y/o female with a hx of bipolar disorder , depression, and anxiety who presents to the ED complaining of a chavez since her last visit two months ago. She was admitted to the hospital two months ago for chavez and states "it hasn't really gone away since". She reports "mental breakdown and racing thoughts". She denies suicidal ideation. She goes to [facility] behavioral therapy. She reports being compliant with her medications. Nursing Notes Stated Complaint: HYPERMANIA Chief Complaint: Psychiatric Complaint Nursing Notes Reviewed: Yes Allergies: Coded Allergies: Penicillins (Unverified Allergy, Unknown, 11/11/16) codeine (Unverified Allergy, Unknown, 11/11/16) disulfiram (Unverified Allergy, Unknown, 11/11/16) lisinopril (Unverified Allergy, Unknown, 11/11/16) naltrexone (Unverified Allergy, Unknown, 11/11/16) prednisone (Unverified Allergy, Unknown, 11/11/16) Scheduled Albuterol/Ipratropium (Combivent Respimat Inhal [place]) 120 Spr/4 Gm Inhaler 1 PUFF IH QID Aripiprazole (Aripiprazole) 20 Mg Tablet 20 MG PO DAILY Benzonatate (Benzonatate) 200 Mg Capsule 200 MG PO TID Hydrochlorothiazide (Hydrochlorothiazide) 25 Mg Tablet 12.5 MG PO DAILY Hydroxyzine Pamoate (HydrOXYzine Pamoate) 50 Mg Capsule 50 MG PO HS Nicotine 21 mg/24 hr Patch (Nicotine 21 mg/24 hr Patch) 1 Each Patch.dysq 1 PATCH TRANSDERM DAILY Psyllium Husk/Aspartame (Metamucil Fiber Singles Packet) 3.4 Gm Powd.pack 1 PACKET PO BIDWM Scheduled PRN hydrOXYzine Hcl (HydrOXYzine Hcl) 25 Mg Tablet 25 MG PO TID PRN PRN For Itching/ anxiety Miscellaneous Medications Losartan Potassium (Losartan Potassium) 25 Mg Tablet 25 MG PO General Time Seen by MD: 23:14 Chief Complaint Manic Hx Obtained From: Patient Arrived By: Walk-in Onset Occurred: More than a week ago... (2 months) Symptom Duration: Since onset Severity: Current: No pain currently Severity: Maximum: No pain Recent Healthcare: Recent doctor visit, Recent hospitalization Similar Sx Previous: Yes Risk-Psychiatric Illness Suicide Risk Stratification Suicide Risk Factors - Adult: : Prior psych admission RF Statements: Risk factors reviewed Past Medical History Past Medical History Bipolar disorder Depression Anxiety Past Surgical History Reports: , Tonsillectomy Smoking History Current Every Day Smoker ("atleast a pack a day") Social History Alcoholic Drug Use: THC Other Social History: Ambulatory Status Independent Review of Systems Reports: Chavez, "mental breakdown", and racing thoughts. Psychiatric: Denies: Suicidal ideation Complete sys rev & neg: except as marked. Physical Exam Initial Vital Signs Vital Signs (First) Date Time Temp Pulse Resp B/P Pulse Ox O2 Delivery O2 Flow Rate FiO2 01/05/17 22:32 36.4 74 22 164/95 97 Room Air Initial VS: Reviewed, Vital signs abnormal Head / Eyes: Atraumatic, Normocephalic Neck: Supple, Non-tender, Full range of motion Respiratory: Breath sounds normal, Clear to auscultation, No respiratory distress Cardiovascular: Regular rate & rhythm, Heart sounds normal, Intact distal pulses Abdomen / GI: Soft, Non-tender Extremities: Vascular intact, Neuro intact, No swelling, No tenderness Skin: Warm, Dry, No cyanosis General/Constitutional: Awake, Alert, No acute distress, Well appearing, Cooperative Pleasant Neurologic: Oriented X3, Speech NL, No motor deficits, No sensory deficits Psychiatric: Affect NL, Mood NL, Not suicidal, Not homicidal, No hallucinations Not delusional. No pressured speech Interpretation & Diagnostics Lab Results Interpretation Result Diagram: 01/05/17 2337 01/05/17 2337 Test 01/05/17 23:19 01/05/17 23:37 01/05/17 23:38 Hold Urine Received (Received) White Blood Count 8.5th/mm3 (3.8-10.1) Red Blood Count 4.51mil/mm3 (3.90-5.20) Hemoglobin 15.1g/dL (12.0-15.6) Hematocrit 41.4% (35.0-46.0) Mean Corpuscular Volume 91.8fL (81-100) Mean Corpuscular Hemoglobin 33.5pg (27.0-35.0) Mean Corpuscular Hemoglobin Concent 36.5% (32.0-37.0) Red Cell Distribution Width 12.9% (12.3-15.4) Platelet Count 215bil/L (150-400) Neutrophils (%) (Auto) 67.2% (40-74) Lymphocytes (%) (Auto) 23.8% (14-46) Monocytes (%) (Auto) 6.4% (4-12) Eosinophils (%) (Auto) 2.0% (0-5) Basophils (%) (Auto) 0.2% (0-3) Sodium Level 131mEq/L (134-144) Potassium Level 4.0mEq/L (3.5-5.2) Chloride Level 91mEq/L (97-108) Carbon Dioxide Level 26mmol/L (18-29) Blood Urea Nitrogen 7mg/dL (6-24) Creatinine 0.51mg/dL (0.57-1.00) Estimat Glomerular Filtration Rate 186mL/min (>59) Glucose Level 113mg/dL (60-99) Calcium Level 9.4mg/dL (8.5-10.1) Total Bilirubin 0.4mg/dL (0.0-1.2) Aspartate Amino Transf (AST/SGOT) 27U/L (0-50) Alanine Aminotransferase (ALT/SGPT) 48U/L (0-32) Alkaline Phosphatase 38U/L (25-150) Total Protein 6.8g/dL (6.4-8.4) Albumin 4.5g/dL (3.4-5.0) Thyroid Stimulating Hormone (TSH) 1.480uIU/mL (0.450-4.500) Hold Heard Top Tube Received (Received) Lab values outside NL range: no clinical significance. Re-Eval/Medical Decision Med Decision/Clinical Course 46-year-old female who was brought here by friends who were concerned about her having an acute exacerbation of bipolar illness. She was calm and cooperative and had no specific complaints. She initially expressed a desire to be evaluated for voluntary admission. However, she later decided that she did not want to stay. She did not meet any group home criteria, is not a danger to herself or others and does not appear gravely disabled. She is conversant and seems able to make decisions at this time. She has her cell phone and plans to call her to pick her up. She was told she could return here for further evaluation as needed. Source of Hx: Old records Re-Evaluation/Progress #1: Time of Eval: 23:19 Re-Evaluation/Progress Note: Informed the pt will be seen by a social services director tomorrow. All questions answered. Re-Evaluation/Progress #2: Time of Eval: 14:12 Re-Evaluation/Progress Note: Rechecked pt. She denies suicidal ideation and homicidal ideation. She does appear gravely disabled and does not meet any group home criteria right now. She does not want to stay in the ED. Discussed diagnosis. F/U instruction and RTER warning given. All questions addressed. Counseled Regarding: Diagnosis, Need for follow-up, When/why to return to ED Discharge & Departure Impression: Primary Impression: Bipolar disorder with psychotic features )( Condition at Discharge: No danger to self, No danger to others, No suicidal ideation, No homicidal ideation Disposition: Home Discharge Condition All VS Reviewed: Yes Patient Instructions: Bipolar Disorder (ED) Additional Instructions: We can make arrangements for you to be evaluated by the social services director in the morning with possible admission. If you choose to leave, continue your regular medications and follow up with your regular providers. You can return here at any time for further evaluation. Referrals: Tameka Young MD (PCP) Scribe Attestation Portions of this note were transcribed by Ari Peter. I,, personally performed the history, physical exam and medical decision-making;I reviewed and confirmed the accuracy of the information in the transcribed note. Signed by Dee Davis. 01/06/17 copies to: Tameka Young MD, Howard L MD Jan 05, 2017 23:18 Ari Peter Jan 05, 2017 23:26
[2017-01-05 23:40] LABS: BASOPHILS % (AUTO) 0.2 % (0-3); MONOCYTES % (AUTO) 6.4 % (4-12); Mean Corpuscular Hemoglobin 33.5 pg (27.0-35.0); Mean Corpuscular Volume 91.8 fL (81-100); NEUTROPHILS % (AUTO) 67.2 % (40-74); Platelet Count 215 bil/L (150-400)
[2017-01-06] MEDS ORDERED: OLANZapine Zydis ODT 5 mg Tablet PO ONE (02:05)
== END 2017-01-06 02:39 | disposition home or self-care (01) ==
LOC: SED 22:23
DX: F31.2 Bipolar disorder, current episode manic severe with psychotic features (principal); F17.200 Nicotine dependence, unspecified, uncomplicated; Z88.0 Allergy status to penicillin; Z88.5 Allergy status to narcotic agent; Z88.8 Allergy status to other drugs, medicaments and biological substances

== ENCOUNTER 2017-01-22 05:22 | Emergency (ER) | payer OTHER ==
[~2017-01-22] VITALS: Ht 162.6 cm; Wt 109.1 kg
[~2017-01-22 05:22] MED LIST changes: +ARIP15TA2 PO; -ARIP20TA10 PO; +BUSP15TA3 PO; -HYDR-656 PO; -NICO1PAT16 TRANSDERM; +SULI200T79 PO; +TRAZ-115 PO; +[UNRECOGNIZED DRUG - CODE] TRANSDERM
[2017-01-22 05:27] VITALS: BP 188/91; PULSE 77; RESP 22; O2SAT 97
[2017-01-22] MEDS ORDERED: DICL50TA7 PO (05:35)
[2017-01-22] MEDS ORDERED: DEP500A PO (05:35)
--- NOTE | 2017-01-22 06:01 | ED.REPORT ---
HPI-Overdose/Alcohol Toxicity Date of Service Jan 22, 2017 ED Provider: Dk Woo DO Patient is a 46 year old female with a hx of bipolar disorder who presents to the ED s/p accidentally overdosing on BuSpar (at least 2, 150mg tabs), trazodone (2, 150mg tabs), and Vistaril (4 or more tabs) at 0330 this morning. She states she took more pills than she should have because she wanted to sleep. She denies suicidal ideation. Her believes that she may have taken more than she is letting on. She states "I want to be voluntary" and reports she was discharged from [facility] 4 days ago but "wasn't ready". Nursing Notes Stated Complaint: BIPOLAR DISORDER, VERY MANIC Chief Complaint: Psychiatric Complaint Nursing Notes Reviewed: Yes Allergies: Coded Allergies: Penicillins (Unverified Allergy, Unknown, 01/22/17) albuterol (Verified Allergy, Unknown, 01/22/17) codeine (Unverified Allergy, Unknown, 01/22/17) disulfiram (Unverified Allergy, Unknown, 01/22/17) ipratropium (Verified Allergy, Unknown, 01/22/17) lisinopril (Unverified Allergy, Unknown, 01/22/17) naltrexone (Unverified Allergy, Unknown, 01/22/17) prednisone (Unverified Allergy, Unknown, 01/22/17) Scheduled Albuterol/Ipratropium (Combivent Respimat Inhal [place]) 120 Spr/4 Gm Inhaler 1 PUFF IH QID Aripiprazole (Abilify) 15 Mg Tablet 30 MG PO DAILY Benzonatate (Benzonatate) 200 Mg Capsule 200 MG PO TID Buspirone (Buspirone) 15 Mg Tablet 15 MG PO BID Diclofenac ER (Diclofenac ER) 50 Mg Tablet 50 MG PO DAILY Divalproex DR (Depakote DR) 500 Mg Tablet 500 MG PO BID Swallowed whole without chewing to avoid local irritation of the mouth and throat. Hydrochlorothiazide (Hydrochlorothiazide) 25 Mg Tablet 12.5 MG PO DAILY Losartan Potassium (Losartan Potassium) 25 Mg Tablet 25 MG PO DAILY Nicotine 21 mg/24 hr Patch (Nicotine 21 mg/24 hr Patch) 1 Each Patch.dysq 1 PATCH TRANSDERM DAILY Psyllium Husk/Aspartame (Metamucil Fiber Singles Packet) 3.4 Gm Powd.pack 1 PACKET PO BIDWM Sulindac (Sulindac) 200 Mg Tablet 200 MG PO BIDWM Trazodone (Trazodone) 50 Mg Tablet 150 MG PO HS Scheduled PRN Hydroxyzine Pamoate (HydrOXYzine Pamoate) 50 Mg Capsule 50 MG PO QID PRN PRN Anxiety/agitation General Time Seen by Provider: 06:00 Chief Complaint Ingestion, other Modifying Factors: No vomiting post-ingest Hx Obtained From: Patient, Spouse Arrived By: Walk-in Onset Occurred: 1 - 4 hours ago Severity: Current: No pain currently Severity: Maximum: No pain Immunizations: Unknown Recent Healthcare: Recent doctor visit, Recent hospitalization Risk-Overdose/Alcohol Tox )( Suicide Risk Stratification : Alcohol use: Prior psych admission: Substance abuse RF Statements: Risk factors reviewed Past Medical History Past Medical History Bipolar disorder Depression Anxiety PTSD Past Surgical History Reports: , Tonsillectomy Smoking History Current Every Day Smoker Social History Alcoholic Drug Use: THC Other Social History: Ambulatory Status Independent Review of Systems Review of Systems Note: +medication ingestion/accidental overdose Constitutional: Denies: Chills, Fever GI: Denies: Constipation, Diarrhea, Nausea, Vomiting Psychiatric: Denies: Hallucinations, auditory, Hallucinations, visual, Homicidal ideation, Suicidal ideation Complete sys rev & neg: except as marked. Physical Exam Initial Vital Signs Vital Signs (First) Date Time Temp Pulse Resp B/P Pulse Ox O2 Delivery O2 Flow Rate FiO2 01/22/17 05:27 36.6 77 22 188/91 97 Room Air Initial VS: Reviewed, Vital signs abnormal Head / Eyes: Atraumatic, Normocephalic Neck: Supple, Full range of motion Skin: Warm, Dry General/Constitutional: Awake, Alert, No acute distress Respiratory / Chest: Atraumatic, Breath sounds NL, Breath sounds = bilat, No respiratory distress Cardiovascular: Heart rate NL, Regular rhythm, Heart sounds NL Abdomen: Atraumatic Neurologic: Oriented X3, Speech NL Abnormal Mood/Affect: Positive: Pressured speech Interpretation & Diagnostics Lab Results Interpretation Result Diagram: 01/22/17 0725 01/22/17 0725 Test 01/22/17 06:10 01/22/17 07:25 Hold Urine Received (Received) White Blood Count 7.0th/mm3 (3.8-10.1) Red Blood Count 4.52mil/mm3 (3.90-5.20) Hemoglobin 14.6g/dL (12.0-15.6) Hematocrit 41.4% (35.0-46.0) Mean Corpuscular Volume 91.6fL (81-100) Mean Corpuscular Hemoglobin 32.3pg (27.0-35.0) Mean Corpuscular Hemoglobin Concent 35.3% (32.0-37.0) Red Cell Distribution Width 12.3% (12.3-15.4) Platelet Count 180bil/L (150-400) Neutrophils (%) (Auto) 63.3% (40-74) Lymphocytes (%) (Auto) 26.6% (14-46) Monocytes (%) (Auto) 7.7% (4-12) Eosinophils (%) (Auto) 1.8% (0-5) Basophils (%) (Auto) 0.3% (0-3) Sodium Level 134mEq/L (134-144) Potassium Level 4.7mEq/L (3.5-5.2) Chloride Level 96mEq/L (97-108) Carbon Dioxide Level 25mmol/L (18-29) Blood Urea Nitrogen 14mg/dL (6-24) Creatinine 0.55mg/dL (0.57-1.00) Estimat Glomerular Filtration Rate 170mL/min (>59) Glucose Level 95mg/dL (60-99) Calcium Level 9.3mg/dL (8.5-10.1) Total Bilirubin 0.2mg/dL (0.0-1.2) Aspartate Amino Transf (AST/SGOT) 20U/L (0-50) Alanine Aminotransferase (ALT/SGPT) 41U/L (0-32) Alkaline Phosphatase 34U/L (25-150) Total Protein 6.6g/dL (6.4-8.4) Albumin 4.4g/dL (3.4-5.0) Thyroid Stimulating Hormone (TSH) 1.730uIU/mL (0.450-4.500) Hold Heard Top Tube Received (Received) Valproic Acid (Depakene) Level 68ug/mL (50-125) Discharge & Departure Shift Change Sign-Out Patient Care Transferred: Yes Discussed Complaint(s): Yes Laboratory Evaluation: Ordered, not yet done Additonal Information: Transfer of care to Dr. Farooq at 1500 Impression: Primary Impression: Bipolar disorder Active/Remission status: in remission of unspecified degree Qualified Code: F31.70 - Bipolar disorder, currently in remission, most recent episode unspecified Discharge Condition All VS Reviewed: Yes Condition: Stable Referrals: OTHER,PHYSICIAN (PCP) Care Transferred to: Dr. Farooq Care Transferred at: 15:00 Scribe Attestation Portions of this note were transcribed by Haroldo Melendez. I, Dr. Woo personally performed the history, physical exam and medical decision-making; I reviewed and confirmed the accuracy of the information in the transcribed note. Signed by: Dee Zendejas, 01/22/17 Dk Woo DO Jan 22, 2017 06:01 HAROLDO MELENDEZ Jan 22, 2017 06:15
[2017-01-22] MEDS ORDERED: LORazepam 2 mg Tablet PO ONE (06:55)
[2017-01-22 07:15] VITALS: BP 150/62
[2017-01-22 07:37] LABS: BASOPHILS % (AUTO) 0.3 % (0-3); EOSINOPHILS % (AUTO) 1.8 % (0-5); MONOCYTES % (AUTO) 7.7 % (4-12); Mean Corpuscular Hemoglobin 32.3 pg (27.0-35.0); Mean Corpuscular Volume 91.6 fL (81-100); NEUTROPHILS % (AUTO) 63.3 % (40-74); Platelet Count 180 bil/L (150-400)
[2017-01-22 10:41] VITALS: BP 128/60; PULSE 72; RESP 22; O2SAT 98
[2017-01-22 16:18] VITALS: BP 141/86; PULSE 63; RESP 18; O2SAT 95
== END 2017-01-22 16:19 | disposition other institution (70) ==
LOC: SED 05:22
DX: F30.2 Manic episode, severe with psychotic symptoms (principal); F31.70 Bipolar disorder, currently in remission, most recent episode unspecified; F41.9 Anxiety disorder, unspecified; F17.200 Nicotine dependence, unspecified, uncomplicated; F12.10 Cannabis abuse, uncomplicated; F43.10 Post-traumatic stress disorder, unspecified; F10.21 Alcohol dependence, in remission; Z88.0 Allergy status to penicillin; Z88.8 Allergy status to other drugs, medicaments and biological substances; Z88.5 Allergy status to narcotic agent